=== PATIENT | female | born 1970 | race American Indian/Alaskan Native ===

== ENCOUNTER 2016-08-13 13:15 | Outpatient (CLI) | payer BC ==
--- NOTE | 2016-08-13 14:42 | Mammography Report ---
Screening mammogram: Routine views demonstrate a generally fatty replaced breast pattern. In the left MLO projection is a focal asymmetry which is not identified on the CC projection. With this exception the findings are generally unremarkable bilaterally. CAD used. Impression: Left asymmetry. This patient prior exams are being requested for comparison. A final report and recommendation will be issued when made available. BI-RADS CATEGORY: 0 = Needs additional imaging evaluation ACR BI-RADS MAMMOGRAPHIC CODES: 0 = Needs additional imaging evaluation; 1 = Negative; 2 = Benign; 3 = Probably benign; 4 = Suspicious; 5 = Malignant; 6 = Known biopsy-proven malignancy COMMENT: 1. Dense breast tissue, i.e., adenosis, fibrocystic changes, etc., may obscure an underlying neoplasm. 2. Approximately 10% of cancers are not detected with mammography. 3. A negative mammography report should not delay biopsy if a clinically suspicious mass is present. No
== END 2016-08-13 13:16 | disposition home or self-care (01) ==
LOC: SPVIMAG 13:15
DX: Z12.31 Encounter for screening mammogram for malignant neoplasm of breast (principal)
CPT/HCPCS: 77067; G0202